=== PATIENT | male | born 1995 | race Two or more races ===

== ENCOUNTER 2024-01-19 09:38 | Emergency (ER) | payer SELFPAY ==
[2024-01-19 09:50] VITALS: BP 134/86
--- NOTE | 2024-01-19 10:33 | ED.GENMED ---
History of Present Illness
General
Chief Complaint: Musculo-Skeletal Complaint
Source: patient
Exam Limitations: none
Time Seen by Provider: 01/19/24 10:08
Nursing documentation reviewed up to this point in time: agreed with
Travel History
Have you had any contact with someone who has COVID-19?: No
Do you have any symptoms of coronavirus? Fever > 100 degrees, chills, cough, shortness of breath, sore throat, loss of taste or smell, muscle aches, or headache?: No
History of Present Illness
History of Present Illness:
28-year-old male with history of hypertension presents with right foot pain when something fell on his foot at work. 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
He was wearing a shoe at the time. He has pain and some reported numbness in the top of his foot with walking. It is better with rest. He has not had any color change, bruising, fevers or chills, inability to weight-bear. He did not take
anything for pain.
Past History
Past History
ED Past Medical History: HTN
ED Past Surgical History: None
Social History
Tobacco: Non-smoker
Alcohol: None
Drug: None
Personal: Single
Review of Systems
Review of Systems
Allergies reviewed?: Yes
All Other Systems: Not applicable
Phy Exam
Physical Exam
Physical Exam:
GENERAL: Alert , in no apparent distress, comfortable at rest
HEAD: NCAT
CV: 2+ DP PULSES B/L
NEUROLOGICAL: Alert and oriented, no focal neuro deficits, , 5/5 strength, sensation intact, ambulation fairly steady, able to walk, minimal limp appreciated
MUSCULOSKELETAL: no obvious STS, no deformity, no bruising, no wounds
some mild tendernes to the midfoot
full rom of the ankle
toe movement intact
sensation grossly intact to light touch
normal pulse
PSYCH: Normal and appropriate interaction.
Course
Orders/Labs/Results
Orders:
Orders
01/19/24 09:51
Foot, Right 3 View [CR Foot - Right Min 3 Views] Urgent
Comment:
Reason For Exam: injury at work
Vital Signs
Initial and Last Documented VS:
Initial Vital Signs
Temp Pulse Resp BP Pulse Ox
98.7 F 101 17 134/86 97
01/19/24 09:50 01/19/24 09:50 01/19/24 09:50 01/19/24 09:50 01/19/24 09:50
Last Documented Vital Signs
Temp Pulse Resp BP Pulse Ox
98.7 F 101 17 134/86 97
01/19/24 09:50 01/19/24 09:50 01/19/24 09:50 01/19/24 09:50 01/19/24 09:50
MDM/Problems Addressed
Differential Diagnosis Includes:
contusion, sprain, fracture
MDM/Problems Addressed:
28-year-old male presents for right midfoot pain after dropping something on his foot at work. 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 He is unsure how heavy it was. He is able to weight-bear but has some pain and reported numbness. On exam
he has no objective numbness, no bruising, no wounds. 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
it was perhaps slightly suspicious for a fracture
i spoke with dr. orozco and sent her photos of the xray, she is sales operations manager for [employer], who suspected this was congential and not a fracture
but because of trauma, will splint in a cam boot and then WBAT with crutches
nsaids
elevation
workman's comp
*Critical Care Note
Total Time (30-74mins, 75-104mins- exclusive of procedures): Not Applicable
ED Attending Note
-
Portions of this chart may have been created with voice recognition software.� Occasional wrong word or��sound alike� substitutions may have occurred due to the inherent limitations of voice recognition software.
Discharge Plan
Departure
Patient Disposition: Home (Routine Discharge)
Date of Disposition: 01/19/24
Time of Disposition: 10:53
Patient with high blood pressure during this ER visit?: No
Condition: Fair
Covid-19: Not Applicable
Discharge Problem:
Contusion of foot
Instructions: How to Use Crutches, Contusion (DC)
Referrals:
Amandeep Koroma DPM [Active] - Follow up in 2-3 days
UNKNOWN - PT DOES,NOT KNOW [Family Provider] -
Stand Alone Forms: Return to Work
Activity Restrictions/Additional Instructions:
IT IS POSSIBLE YOU HAVE A FRACTURE OF YOUR NAVICULAR BONE IN YOUR FOOT. THIS IS DIFFICULT TO TELL. THE ORTHOPEDIST BOXING PROMOTER WANTS YOU IN A WALKING BOOT AND CRUTCHES FOR WEIGHT BEARING TOLERATED/PROTECTED WEIGHT BEARING AND CALL THE OFFICE TO BE
SEEN THIS WEEK.
TAKE MOTRIN EVERY 8 HOURS NEEDED FOR PAIN
ELEVATE, ICE OFF AND ON
FOLLOW UP WITH WORKMAN'S COMP TO ENSURE CLEARANCE BACK TO WORK. YOU ARE EXCUSED FOR TODAY
RETURN FOR ANY CONCERNS.
Interventions
Interventions:
*General Assessment Last Done: 01/19/24 11:25
*ED COVID-19 Vaccine History Last Done: 01/19/24 09:50
*Nursing Disposition Last Done: 01/19/24 11:25
ED-Musculoskeletal Assessment Last Done: 01/19/24 10:45
Discharge Date and Time
Discharge Date/Time: 01/19/24 11:25
Print Language: GEORGIAN
== END 2024-01-19 11:25 | disposition home or self-care (01) ==
LOC: EMR 09:38
PROVIDERS: EMERGENCY PHYSICIAN Emergency Medicine
DX: S90.31XA Contusion of right foot, initial encounter (principal); W20.8XXA Other cause of strike by thrown, projected or falling object, initial encounter; Y99.0 Civilian activity done for income or pay; M79.671 Pain in right foot; I10 Essential (primary) hypertension
CPT/HCPCS: 99283; 73630